=== PATIENT | male | born 1955 | race Caucasian/White ===

== ENCOUNTER 2021-07-14 09:49 | Emergency (ER) | payer BC ==
[2021-07-14 10:16] VITALS: BMI 31.4
[2021-07-14] MEDS ORDERED: CASIRIVIMAB/IMDEVIMAB 10 ML in SODIUM CHLORIDE 100 ML IVPB ONE (10:19)
[2021-07-14 13:52] VITALS: BP 126/82; PULSE 90; TEMP 99
== END 2021-07-14 13:53 | disposition home or self-care (01) ==
LOC: JCOVINFU 09:49
DX: U07.1 COVID-19 (principal)
CPT/HCPCS: 99284-25; Q0240